=== PATIENT | female | born 1990 | race African-American/Black ===

== ENCOUNTER → 2017-04-04 | Outpatient (CLI) | payer MEDICAID ==
[2017-04-04 13:43] LABS: BASO % 0.2 % (0.0-1.0); EOS # 0.2 10^3/uL (0.0-0.50); EOS % 1.3 % (0.0-3.0); HEMATOCRIT 26.1 % (36.0-47.0); HEMOGLOBIN 8.3 g/dl (12.0-16.0); IMMATURE GRANULOCYTE % 2.1 % (0-3.0); LYMPH # 3.5 10^3/uL (1.5-6.5); LYMPH % 19.8 % (24.0-44.0); MEAN CORPUSCULAR HEMOGLOBIN 25.6 pg (27.0-33.0); MEAN CORPUSCULAR HGB CONC 31.8 g/dl (32.0-36.5); MEAN CORPUSCULAR VOLUME 80.6 fl (80.0-96.0); MONO # 1.6 10^3/uL (0.0-0.8); MONO % 9.1 % (0.0-5.0); NEUTROPHILS # 11.8 10^3/uL (1.8-7.7); NEUTROPHILS % 67.5 % (36.0-66.0); PLATELET COUNT, AUTOMATED 295 10^3/uL (150-450); RED BLOOD COUNT 3.24 10^6/uL (4.00-5.40); RED CELL DISTRIBUTION WIDTH 14.6 % (11.5-14.5); WHITE BLOOD COUNT 17.5 10^3/uL (4.0-10.0)
[2017-04-04 14:08] LABS: RUBELLA IgG QUALITATIVE IMMUNE (IMMUNE)
[2017-04-04 14:09] LABS: HEPATITIS B SURFACE ANTIGEN NEGATIVE (NEGATIVE)
[2017-04-04 14:37] LABS: HEPATITIS C VIRUS ABY INDEX 0.2 INDEX (<0.8)
== END ==
LOC: M SMT 10:46
DX: Z34.83 Encounter for supervision of other normal pregnancy, third trimester (principal)
CPT/HCPCS: 86762

== ENCOUNTER → 2017-04-04 | Outpatient (CLI) | payer MEDICAID | LOC: M RAD 09:23 | DX: Z36.87 Encounter for antenatal screening for uncertain dates (principal); Z3A.34 34 weeks gestation of pregnancy | CPT/HCPCS: 76820 ==

== ENCOUNTER → 2017-04-12 | Outpatient (REF) | payer MEDICAID | LOC: M LAB REF 12:59 | DX: Z34.83 Encounter for supervision of other normal pregnancy, third trimester (principal); Z3A.00 Weeks of gestation of pregnancy not specified ==

== ENCOUNTER 2017-05-04 05:36 | Inpatient (IN) | payer MEDICAID ==
[2017-05-04] MEDS: LR 1,000 ML IV ×3 (06:00→17:14)
[2017-05-04 06:36] LABS: HEMATOCRIT 26.6 % (36.0-47.0); HEMOGLOBIN 8.2 g/dl (12.0-16.0); MEAN CORPUSCULAR HEMOGLOBIN 23.4 pg (27.0-33.0); MEAN CORPUSCULAR HGB CONC 30.8 g/dl (32.0-36.5); MEAN CORPUSCULAR VOLUME 75.8 fl (80.0-96.0); PLATELET COUNT, AUTOMATED 354 10^3/uL (150-450); RED BLOOD COUNT 3.51 10^6/uL (4.00-5.40); RED CELL DISTRIBUTION WIDTH 15.5 % (11.5-14.5); WHITE BLOOD COUNT 15.9 10^3/uL (4.0-10.0)
[2017-05-04] MEDS ORDERED: LR 1,000 ML IV (07:00)
[2017-05-04] MEDS: BICITRA 30ML SOLN UDC PO (07:19)
[2017-05-04 07:36] LABS: AMPHETAMINES URINE REFLEX NEGATIVE (NEGATIVE); BARBITURATES URINE REFLEX NEGATIVE (NEGATIVE); BENZODIAZEPINES URINE REFLEX NEGATIVE (NEGATIVE); CANNABINOIDS URINE REFLEX NEGATIVE (NEGATIVE); COCAINE METABOLITE URINE REFLE NEGATIVE (NEGATIVE); METHADONE URINE REFLEX NEGATIVE (NEGATIVE); OPIATES URINE REFLEX NEGATIVE (NEGATIVE); PHENCYCLIDINE URINE REFLEX NEGATIVE (NEGATIVE)
[2017-05-04] MEDS ORDERED: MORPHINE PRES-FREE INJ 10 MG/10 ML VIAL (J2274) As Ordered (08:05)
[2017-05-04] MEDS ORDERED: OXYTOCIN INJ 10 UNITS/ML VIAL (J2590) As Ordered (08:05)
[2017-05-04] MEDS ORDERED: PHENYLephrine HCL 500 MCG/5 ML (100MCG/ML) SYRINGE (J2370) As Ordered (08:30)
[2017-05-04] MEDS ORDERED: ePHEDrine SULFATE 25 MG/5 ML(5MG/ML) SYRINGE As Ordered (08:30)
[2017-05-04] MEDS ORDERED: fentaNYL 100 MCG/2 ML INJECTION (J3010) As Ordered ×3 (08:50→10:20)
[2017-05-04] MEDS ORDERED: ONDANSETRON 4MG/2ML VIAL (J2405) As Ordered (08:51)
[2017-05-04] MEDS: PRENATAL VITAMINS CHEWABLE TABLET PO (09:00)
[2017-05-04] MEDS: FERROUS SULFATE 325MG TAB PO ×2 (09:00→20:02)
[2017-05-04] MEDS ORDERED: MOM 30ML SUSPENSION UDC PO (10:00)
[2017-05-04] MEDS ORDERED: NALBUPHINE HCL 10 MG/ML AMP (J2300) IV (10:30)
[2017-05-04] MEDS ORDERED: ONDANSETRON 4MG/2ML VIAL (J2405) IV (10:30)
[2017-05-04] MEDS ORDERED: PERCOCET 5MG/325MG TAB PO (10:30)
[2017-05-04] MEDS ORDERED: MEPERIDINE INJ 25 MG/ML VIAL (J2175) IV (10:30)
[2017-05-04] MEDS ORDERED: fentaNYL 100 MCG/2 ML INJECTION (J3010) IV (10:30)
[2017-05-04] MEDS ORDERED: HYDROmorphone HCL 1 MG/ML SYRINGE (J1170) IV (10:30)
[2017-05-04] MEDS: MEASLES,MUMPS,RUBELLA VACCINE INJ (MMR-II) (90707) SC (11:21)
[2017-05-04] MEDS: RHOGAM 300 MCG (1500 IU) INJ (J2790) IM (11:21)
[2017-05-04 12:33] LABS: HEMATOCRIT 23.3 % (36.0-47.0); HEMOGLOBIN 7.2 g/dl (12.0-16.0); MEAN CORPUSCULAR HEMOGLOBIN 23.5 pg (27.0-33.0); MEAN CORPUSCULAR HGB CONC 30.9 g/dl (32.0-36.5); MEAN CORPUSCULAR VOLUME 76.1 fl (80.0-96.0); PLATELET COUNT, AUTOMATED 299 10^3/uL (150-450); RED BLOOD COUNT 3.06 10^6/uL (4.00-5.40); RED CELL DISTRIBUTION WIDTH 15.6 % (11.5-14.5); WHITE BLOOD COUNT 24.6 10^3/uL (4.0-10.0)
[2017-05-04] MEDS: ONDANSETRON 4MG/2ML VIAL (J2405) IV (13:07)
[2017-05-04] MEDS: KETOROLAC 30 MG/ML VIAL (J1885) IV ×2 (15:03→20:02)
[2017-05-04 17:15] LABS: IMMEDIATE SPIN CROSSMATCH 1 2
[2017-05-04] MEDS: diphenhydrAMINE INJ 50MG/ML VIAL (J1200) IV (20:31)
[2017-05-05] MEDS: LR 1,000 ML IV (00:04)
[2017-05-05] MEDS: KETOROLAC 30 MG/ML VIAL (J1885) IV ×2 (02:03→08:40)
[2017-05-05 06:37] LABS: HEMATOCRIT 25.3 % (36.0-47.0); HEMOGLOBIN 8.2 g/dl (12.0-16.0); MEAN CORPUSCULAR HEMOGLOBIN 25.3 pg (27.0-33.0); MEAN CORPUSCULAR HGB CONC 32.4 g/dl (32.0-36.5); MEAN CORPUSCULAR VOLUME 78.1 fl (80.0-96.0); PLATELET COUNT, AUTOMATED 250 10^3/uL (150-450); RED BLOOD COUNT 3.24 10^6/uL (4.00-5.40); RED CELL DISTRIBUTION WIDTH 15.9 % (11.5-14.5); WHITE BLOOD COUNT 16.2 10^3/uL (4.0-10.0)
[2017-05-05] MEDS: PRENATAL VITAMINS CHEWABLE TABLET PO (08:40)
[2017-05-05] MEDS: FERROUS SULFATE 325MG TAB PO ×2 (08:40→21:11)
[2017-05-05] MEDS: PERCOCET 5MG/325MG TAB PO ×2 (08:50→21:12)
[2017-05-05] MEDS: IBUPROFEN 800 MG TAB PO (16:40)
[2017-05-05] MEDS: DOCUSATE SODIUM 100 MG CAP PO (21:12)
[2017-05-06] MEDS: IBUPROFEN 800 MG TAB PO ×3 (00:18→17:51)
[2017-05-06] MEDS: PERCOCET 5MG/325MG TAB PO ×3 (07:24→20:18)
[2017-05-06] MEDS: FERROUS SULFATE 325MG TAB PO ×2 (08:59→20:18)
[2017-05-06] MEDS: PRENATAL VITAMINS CHEWABLE TABLET PO (08:59)
[2017-05-06] MEDS: DOCUSATE SODIUM 100 MG CAP PO (20:17)
[2017-05-07] MEDS: IBUPROFEN 800 MG TAB PO ×2 (01:18→08:53)
[2017-05-07] MEDS: PERCOCET 5MG/325MG TAB PO (01:19)
[2017-05-07] MEDS: PRENATAL VITAMINS CHEWABLE TABLET PO (08:53)
[2017-05-07] MEDS: FERROUS SULFATE 325MG TAB PO (08:53)
== END 2017-05-07 10:35 | disposition home or self-care (01) | DRG 540 ==
LOC: M LDI 05:36 → M OBS 11:28
PROVIDERS: Obstetrics & Gynecology
PROC: 10D00Z1 Extraction of Products of Conception, Low, Open Approach (ICD-10-PCS; principal; 2017-05-04 07:30)
PROC: 0UL70ZZ Occlusion of Bilateral Fallopian Tubes, Open Approach (ICD-10-PCS; 2017-05-04 07:30)
PROC: 30233N1 Transfusion of Nonautologous Red Blood Cells into Peripheral Vein, Percutaneous Approach (ICD-10-PCS; 2017-05-04 07:30)
DX: O99.02 Anemia complicating childbirth (principal); Z37.0 Single live birth; Z3A.39 39 weeks gestation of pregnancy; D64.9 Anemia, unspecified; Z79.899 Other long term (current) drug therapy; O34.211 Maternal care for low transverse scar from previous cesarean delivery; F17.200 Nicotine dependence, unspecified, uncomplicated; Z30.2 Encounter for sterilization; O99.334 Smoking (tobacco) complicating childbirth